=== PATIENT | female | born 1955 | race Caucasian/White ===

== ENCOUNTER → 2017-04-13 | Outpatient (CLI) | payer OTHER ==
--- NOTE | ~2017-04-13 | US77 ---
[facility] A Service of [facility] RADIOLOGY TEXT RESULTS PATIENT: DEDE WARD LOCATION: [facility] : 57 UNIT #: [id number] AGE: [address]: Mayo Pride MD SEX: F ORDER DR: [id number] [facility]. [place], [place] [address] [id number] O MR#: [id number] Acc #: [id number] NAME: DEDE WARD : 1955 SEX: F STUDY DATE/TIME: 04/13/2017 15:31 UNIT: [facility] ROOM: STUDY DESCRIPTION: US Kidney Bilateral Complete Attending Physician: Mayo Pride M.D. Ordering Physician: Mayo Pride M.D. Primary Care Physician: Kylee Caicedo M.D. MEDICAL IMAGING REPORT This report is preliminary unless electronic signature is present EXAM Renal ultrasound INDICATION Stones for 1 month. Patient did have a KUB performed today which showed left renal stones. TECHNIQUE Dent-scale and color Doppler sonographic images were obtained through the kidneys and bladder. FINDINGS Right kidney is normal in appearance. No solid or cystic renal masses are seen and there is no hydronephrosis. Patient is noted to have a nonobstructing stone seen within the left kidney measuring up to 1.1 x 1.0 cm. Patient's urinary bladder appears unremarkable. IMPRESSION Nonobstructing left renal stone measuring up to 1.1 cm. Dictated by... Rosie Bennett M.D. THIS IS AN ELECTRONICALLY VERIFIED REPORT Rosie Bennett M.D. at 04/14/2017 5:43 PM AFF/aa TD: 04/14/2017 09:37 JOB #: [id number] [facility] A Service of [facility] RADIOLOGY TEXT RESULTS PATIENT: DEDE WARD LOCATION: [facility] : 57 UNIT #: [id number] AGE: [address]: Mayo Pride MD SEX: F ORDER DR: MEDICAL IMAGING REPORT Page 1 of 1 COPY
--- NOTE | ~2017-04-13 | CR7 ---
[facility] A Service of [facility] RADIOLOGY TEXT RESULTS PATIENT: DEDE WARD LOCATION: [facility] : 57 UNIT #: [id number] AGE: [address]: Mayo Pride MD SEX: F ORDER DR: [id number] [facility]. [place], [place] [address] [id number] O MR#: [id number] Acc #: [id number] NAME: DEDE WARD : 1955 SEX: F STUDY DATE/TIME: 04/13/2017 UNIT: [facility] ROOM: STUDY DESCRIPTION: CR Abdomen Single AP View Attending Physician: Mayo Pride M.D. Ordering Physician: Mayo Pride M.D. Primary Care Physician: Kylee Caicedo M.D. MEDICAL IMAGING REPORT This report is preliminary unless electronic signature is present EXAM Abdomen one-view 04/13/2017 1553 hours. HISTORY 61-year-old woman with 1-month history of bilateral pain, history of kidney stones for further evaluation. COMPARISON Renal cell 04/13/2017 FINDINGS Single supine view of the abdomen demonstrates no evidence of bowel obstruction. There are clips consistent with prior cholecystectomy. There is a calcification projecting over the left kidney, measuring up to 1.1 cm likely corresponding to the stone seen on ultrasound 04/13/2017. No definite ureteral calculi are seen. IMPRESSION Abdominal film confirms the presence of a 1.1-cm calcification projecting over the left mid kidney. This is similar to the finding on ultrasound of 04/13/2017. No ureteral calculi are seen. No evidence of bowel obstruction. Dictated by... Rica Lira M.D. THIS IS AN ELECTRONICALLY VERIFIED REPORT Rica Lira M.D. at 04/14/2017 5:52 PM CYRUS/robert TD: 04/14/2017 15:40 JOB #: [id number] [facility] A Service of [facility] RADIOLOGY TEXT RESULTS PATIENT: DEDE WARD LOCATION: [facility] : 57 UNIT #: [id number] AGE: [address]: Mayo Pride MD SEX: F ORDER DR: MEDICAL IMAGING REPORT Page 1 of 1 COPY
== END | disposition home or self-care (01) ==
LOC: CWCC 15:20
DX: N20.0 Calculus of kidney (principal); N28.89 Other specified disorders of kidney and ureter
CPT/HCPCS: 74000; 76770